=== PATIENT | male | born 1985 | race Caucasian/White ===

== ENCOUNTER 2017-08-27 16:01 | Emergency (ER) | payer OTHER ==
[~2017-08-27] VITALS: Ht 185.4 cm; Wt 158.7 kg
[~2017-08-27 16:01] MED LIST: IBUP-103 PO
[2017-08-27 16:13] VITALS: TEMP 36.8; Ht 185.4 cm; Wt 158.7 kg
[2017-08-27] MEDS ORDERED: KETOROLAC TROMETHAMINE 30 MG/ML VIAL IV STA (16:29)
[2017-08-27] MEDS ORDERED: METOCLOPRAMIDE HCL INJ 5 MG/ML 2 ML VIAL IV STA (16:29)
[2017-08-27] MEDS ORDERED: SODIUM CHLORIDE 0.9% 1000ML 2,000 ML IV STA (16:29)
[2017-08-27] MEDS ORDERED: DEXAMETHASONE **PF** INJ 10 MG/ML VIAL IV ONE (16:30)
--- NOTE | 2017-08-27 16:30 | EMERGENCY ROOM VISIT NOTE ---
History Report prepared by Shahzad: Ovidio Lucero Under the Supervision of: Dr. Melo Shi M.D. First contact with patient: 16:18 Chief Complaint: THROAT PAIN/INJURY Stated Complaint: THROAT HURTS, PAIN IN BACK OF HEAD History of Present Illness The patient is a 32 year old male who presents to the Emergency Room with complaints of a constant sore throat and headache in the back of his head that began yesterday. The patient states that he went to the [facility] on , two days ago for flu-like symptoms. He was then experiencing cough, congestion, and body aches. These symptoms are still present. His laboratory results were influenza positive. He was also complaining of left sided abdominal pain and was given Tramadol and diagnosed with Cirrhosis of the liver. The patient states that he was also urinating gross blood, he was told that this was due to dehydration. He admits to being a former alcohol. Source of History: patient (yesterday) Onset: Yesterday Position: head, throat Timing: constant Associated Symptoms: + cough, + urinary symptoms Review of Systems See HPI for pertinent positives and negatives. A total of ten systems were reviewed and were otherwise negative. Past Medical & Surgical Medical Problems: (1) Hx of low back pain Family History Diabetes mellitus Hypertension Kidney disease Kidney stones Social History Smoking Status: Never Smoker Marital Status: in relationship Housing Status: lives with significant other Occupation Status: employed Current/Historical Medications Scheduled Aripiprazole (Aripiprazole), 20 MG PO HS Diphenhydramine Hcl (Banophen), 50 MG PO HS Imipramine HCl (Imipramine HCl), 25 MG PO HS Ondasetron Odt (Zofran Odt), 4 MG SL Q6H Oseltamivir Phosphate (Tamiflu), 75 MG PO BID Zolpidem Tartrate (Zolpidem Tartrate), 5 MG PO HS Scheduled PRN Ibuprofen Tab (Advil), 400 MG PO for Pain Allergies Coded Allergies: No Known Allergies (Unverified , 03/26/14) Physical Exam Vital Signs Date Time Temp Pulse Resp B/P (MAP) Pulse Ox O2 Delivery O2 Flow Rate FiO2 08/27/17 18:25 91 22 139/84 96 Room Air 08/27/17 17:28 97 08/27/17 17:21 92 24 159/102 98 Room Air 08/27/17 16:13 36.8 86 18 161/105 95 Room Air Physical Exam GENERAL: Awake, alert, uncomfortable-appearing, in no distress HENT: Normocephalic, atraumatic. Dry cracked mucous membranes. There is mild injection and scant edema with no educate to the posterior oropharynx. EYES: Normal conjunctiva. Sclera non-icteric. NECK: Supple. No nuchal rigidity. FROM. No JVD. There is mild submandibular lymphadenopathy. There is mild paraspinal tenderness in the neck. There is full ROM of the neck there is no signs of meningismus. The neck is otherwise supple. RESPIRATORY: Clear to auscultation. CARDIAC: Regular rate, normal rhythm. Extremities warm and well perfused. Pulses equal. ABDOMEN: Abdomen is Obese. but soft, non-distended. No tenderness to palpation. No rebound or guarding. No masses. RECTAL: Deferred. MUSCULOSKELETAL: Chest examination reveals no tenderness. The back is symmetrical on inspection without obvious abnormality. There is no CVA tenderness to palpation. No joint edema. LOWER EXTREMITIES: Calves are equal size bilaterally and non-tender. No edema. No discoloration. NEURO: Normal sensorium. No sensory or motor deficits noted. SKIN: No rash or jaundice noted. Medical Decision & Procedures ER Provider Diagnostic Interpretation: Radiology results as stated below per my review and radiologist interpretation: CHEST ONE VIEW PORTABLE HISTORY: cough COMPARISON: None. FINDINGS: The lungs are clear. Cardiac silhouette is normal in size. No pleural effusions. No pneumothorax. IMPRESSION: No acute process. Electronically signed by: Edward López M.D. 08/27/2017 5:20 PM Dictated Date/Time: 08/27/2017 5:19 PM Laboratory Results 08/27/17 17:00 Red Blood Count 4.15, Mean Corpuscular Volume 94.2, Mean Corpuscular Hemoglobin 33.0, Mean Corpuscular Hemoglobin Concent 35.0, Mean Platelet Volume 9.2, Neutrophils (%) (Auto) 49.7, Lymphocytes (%) (Auto) 36.8, Monocytes (%) (Auto) 10.8, Eosinophils (%) (Auto) 2.2, Basophils (%) (Auto) 0.3, Neutrophils # (Auto ) 3.10, Lymphocytes # (Auto) 2.29, Monocytes # (Auto) 0.67, Eosinophils # (Auto ) 0.14, Basophils # (Auto) 0.02 08/27/17 17:00 Test 08/27/17 16:47 08/27/17 17:00 Urine Color DK YELLOW Urine Appearance CLEAR (CLEAR) Urine pH 5.0 (4.5-7.5) Urine Specific [place] 1.028 (1.000-1.030) Urine Protein 1+ (NEG) Urine Glucose (UA) NEG (NEG) Urine Ketones TRACE (NEG) Urine Occult Blood NEG (NEG) Urine Nitrite NEG (NEG) Urine Bilirubin NEG (NEG) Urine Urobilinogen NEG (NEG) Urine Leukocyte Esterase NEG (NEG) Urine WBC (Auto) 1-5 /hpf (0-5) Urine RBC (Auto) 0-4 /hpf (0-4) Urine Hyaline Casts (Auto) 1-5 /lpf (0-5) Urine Epithelial Cells (Auto) >30 /lpf (0-5) Urine Bacteria (Auto) NEG (NEG) White Blood Count 6.23 K/uL (4.8-10.8) Red Blood Count 4.15 M/uL (4.7-6.1) Hemoglobin 13.7 g/dL (14.0-18.0) Hematocrit 39.1 % (42-52) Mean Corpuscular Volume 94.2 fL (80-100) Mean Corpuscular Hemoglobin 33.0 pg (25-34) Mean Corpuscular Hemoglobin Concent 35.0 g/dl (32-36) Platelet Count 218 K/uL (130-400) Mean Platelet Volume 9.2 fL (7.4-10.4) Neutrophils (%) (Auto) 49.7 % Lymphocytes (%) (Auto) 36.8 % Monocytes (%) (Auto) 10.8 % Eosinophils (%) (Auto) 2.2 % Basophils (%) (Auto) 0.3 % Neutrophils # (Auto) 3.10 K/uL (1.4-6.5) Lymphocytes # (Auto) 2.29 K/uL (1.2-3.4) Monocytes # (Auto) 0.67 K/uL (0.11-0.59) Eosinophils # (Auto) 0.14 K/uL (0-0.5) Basophils # (Auto) 0.02 K/uL (0-0.2) RDW Standard Deviation 45.3 fL (36.4-46.3) RDW Coefficient of Variation 13.2 % (11.5-14.5) Immature Granulocyte % (Auto) 0.2 % Immature Granulocyte # (Auto) 0.01 K/uL (0.00-0.02) Anion Gap 4.0 mmol/L (3-11) Est Creatinine Clear Calc Drug Dose 169.1 ml/min Estimated GFR () 117.6 Estimated GFR (Non- 101.4 BUN/Creatinine Ratio 11.7 (10-20) Calcium Level 8.6 mg/dl (8.5-10.1) Total Bilirubin 0.5 mg/dl (0.2-1) Direct Bilirubin < 0.1 mg/dl (0-0.2) Aspartate Amino Transf (AST/SGOT) 37 U/L (15-37) Alanine Aminotransferase (ALT/SGPT) 41 U/L (12-78) Alkaline Phosphatase 85 U/L (45-117) Total Protein 8.3 gm/dl (6.4-8.2) Albumin 3.5 gm/dl (3.4-5.0) Lipase 182 U/L (73-393) Monoscreen NEG (NEG) Laboratory results reviewed by me Medications Administered Medications (Trade) Dose Ordered Sig/Mila Route Start Time Stop Time Status Last Admin Dose Admin Sodium Chloride 2,000 ml @ 999 mls/hr Q2H1M STAT IV 08/27/17 16:29 08/27/17 18:29 DC 08/27/17 17:14 999 MLS/HR Ketorolac Tromethamine (Toradol Inj) 15 mg NOW STAT IV 08/27/17 16:29 08/27/17 16:32 DC 08/27/17 17:16 15 MG Metoclopramide HCl (Reglan Inj) 10 mg NOW STAT IV 08/27/17 16:29 08/27/17 16:32 DC 08/27/17 17:15 10 MG Dexamethasone Sodium Phosphate (Dexamethasone Inj Pf) 10 mg NOW ONCE IV 08/27/17 16:30 08/27/17 16:32 DC 08/27/17 17:14 10 MG Oseltamivir Phosphate (Tamiflu Cap) 75 mg NOW STAT PO 08/27/17 17:39 08/27/17 17:40 DC 08/27/17 18:23 75 MG ED Course 1629: Ordered Reglan 10 mg Iv, Toradol 15 mg IV, Sodium Chloride 2000 mL @ 999 mL/hr IV. 1630: Ordered Dexamethasone 10 mg IV. 1636: The patient was evaluated in room 1620. A complete history and physical exam was performed. Medical Decision I reviewed the patient's past medical history, medications, and the nursing notes as described above. Differential diagnosis includes; pneumonia, bronchitis, viral illness, influenza , mononucleosis, pharyngitis, dehydration, electrolyte imbalance, tension headache, migraine headache. The patient is a 32-year-old gentleman who presents emergency Department with persistent cough congestion, body aches after being seen at [facility] for similar symptoms and was diagnosed with influenza now has developed a sore throat per hpi. On arrival the patient is uncomfortable but in no acute distress, afebrile stable vital signs. Patient appears clinically dry with dry cracked mucous membranes. Mild injection/edema in the posterior pharynx without exudates. No tongue elevation or trismus. Of note patient did have a CT scan performed at [facility] last week that demonstrated diffuse hepatic steatosis, splenomegaly and large gastric varices concerning for cirrhosis but otherwise no acute findings. Labs unremarkable including wbc wnl. Monospot negative. Patient improved after IVF, dexamethasone, toradol. Given patient's cirrhosis on recent CT. Reasonable to tx patient's influenza with Tamiflu despite onset of sx > 48 hours. Plan for pcp f/u. Findings and plan for follow- up reviewed with patient. Patient agreeable and d/c'd per discharge instructions. Impression Primary Impression: Influenza Scribe Attestation The scribe's documentation has been prepared under my direction and personally reviewed by me in its entirety. I confirm that the note above accurately reflects all work, treatment, procedures, and medical decision making performed by me. Departure Information Dispostion Home / Self-Care Prescriptions Ondasetron Odt (ZOFRAN ODT) 4 Mg Tab 4 MG SL Q6H for Nausea, #10 TAB Prov: Melo Shi M.D. 08/27/17 Oseltamivir Phosphate (Tamiflu) 75 Mg Cap 75 MG PO BID, #10 CAP Prov: Melo Shi M.D. 08/27/17 Referrals No Doctor, Assigned (PCP) Patient Instructions ED Flu, My [facility] Additional Instructions Please follow up with your primary care physician in the next 1-3 days for re- evaluation and also to discuss your CT scan findings form [facility] last week. Your symptoms are most likely due to your prior diagnosis of flu. Otherwise, your exam, EKG, chest xray, and lab results did not show signs of an emergent condition at this time. Acetaminophen or ibuprofen for pain and fevers as needed. Zofran as needed for nausea. Tamiflu as directed. Drink plenty of fluids to ensure hydration. Return to the emergency department for worsening symptoms as described in the accompanying instructions.
[2017-08-27] MEDS ORDERED: DIPH50CA31 PO (16:55)
[2017-08-27] MEDS ORDERED: ARIP1TAB17 PO (16:55)
[2017-08-27] MEDS ORDERED: [UNRECOGNIZED DRUG - CODE] PO (16:55)
[2017-08-27] MEDS ORDERED: ZOLP5TAB6 PO (16:55)
[2017-08-27 17:18] LABS: BASO % 0.3 %; BASO ABS # 0.02 K/uL (0-0.2); EOS % 2.2 %; EOS ABS # 0.14 K/uL (0-0.5); HEMATOCRIT 39.1 % (42-52); HEMOGLOBIN 13.7 g/dL (14.0-18.0); IG# 0.01 K/uL (0.00-0.02); LYMPH % 36.8 %; LYMPH ABS # 2.29 K/uL (1.2-3.4); MEAN CELL VOLUME 94.2 fL (80-100); MEAN PLATELET VOLUME 9.2 fL (7.4-10.4); MONO % 10.8 %; MONO ABS # 0.67 K/uL (0.11-0.59); NEUT % 49.7 %; PLATELET COUNT 218 K/uL (130-400); RED CELL DISTRIBUTION WIDTH CV 13.2 % (11.5-14.5); RED CELL DISTRIBUTION WIDTH SD 45.3 fL (36.4-46.3); WHITE BLOOD COUNT 6.23 K/uL (4.8-10.8)
--- NOTE | 2017-08-27 17:22 | DIAGNOSTIC IMAGING REPORT ---
CHEST ONE VIEW PORTABLE HISTORY: cough COMPARISON: None. FINDINGS: The lungs are clear. Cardiac silhouette is normal in size. No pleural effusions. No pneumothorax. IMPRESSION: No acute process. Electronically signed by: Edward López M.D. 08/27/2017 5:20 PM Dictated Date/Time: 08/27/2017 5:19 PM
[2017-08-27 17:35] LABS: ALBUMIN 3.5 gm/dl (3.4-5.0); ALT/SGPT 41 U/L (12-78); AST/SGOT 37 U/L (15-37); BLOOD UREA NITROGEN 11 mg/dl (7-18); CALCIUM 8.6 mg/dl (8.5-10.1); CARBON DIOXIDE 28 mmol/L (21-32); CREATININE 0.97 mg/dl (0.60-1.40); GLUCOSE 116 mg/dl (70-99); LIPASE 182 U/L (73-393); POTASSIUM 3.8 mmol/L (3.5-5.1); SODIUM 137 mmol/L (136-145)
[2017-08-27 17:38] LABS: ALKALINE PHOSPHATASE 85 U/L (45-117); TOTAL PROTEIN 8.3 gm/dl (6.4-8.2)
[2017-08-27] MEDS ORDERED: OSELTAMIVIR PHOSPHATE 75 MG CAP PO STA (17:39)
[2017-08-27] MEDS ORDERED: OSEL75CA23 PO (17:40)
[2017-08-27] MEDS ORDERED: ONDA4TAB10 SL (17:43)
[2017-08-27 18:25] VITALS: BP 139/84; PULSE 91; O2SAT 96
== END 2017-08-27 18:38 | disposition home or self-care (01) ==
LOC: C.EDB 16:02
DX: J11.1 Influenza due to unidentified influenza virus with other respiratory manifestations (principal); F10.21 Alcohol dependence, in remission; K74.60 Unspecified cirrhosis of liver; E66.9 Obesity, unspecified; Z83.3 Family history of diabetes mellitus; Z82.49 Family history of ischemic heart disease and other diseases of the circulatory system; Z84.1 Family history of disorders of kidney and ureter